=== PATIENT | female | born 1995 | race Caucasian/White ===

== ENCOUNTER 2022-09-14 12:04 | Emergency (ER) | payer OTHER ==
[2022-09-14 12:23] VITALS: BP 106/61; PULSE 72; RESP 18; TEMP 99; BMI 24.1
[2022-09-14] MEDS ORDERED: BENZOCAINE/MENTH/CETYLPYRD CL 1 EACH LOZENGE MM PRN (12:43)
[2022-09-14] MEDS ORDERED: ACETAMINOPHEN 325 MG TABLET (FP) PO ONE (12:43)
[2022-09-14] MEDS ORDERED: ERYTHROMYCIN 0.5% OPHTHALMIC OINTMENT 3.5 GM TUBE OD ONE (12:44)
[2022-09-14] MEDS ORDERED: ERYTHROMYCIN 0.5% OPHTHALMIC OINTMENT 3.5 GM TUBE ONE (12:48)
[2022-09-14] MEDS ORDERED: ACETAMINOPHEN 325 MG TABLET (FP) ONE (12:48)
== END 2022-09-14 13:35 | disposition home or self-care (01) ==
LOC: FER 12:04
DX: H10.9 Unspecified conjunctivitis (principal); R07.0 Pain in throat; B34.9 Viral infection, unspecified
CPT/HCPCS: 0241U-QW; 71045-TC-FY; 87070; 99284-25

== ENCOUNTER 2022-09-19 11:15 | Emergency (ER) | payer OTHER ==
[2022-09-19 11:22] VITALS: BP 113/67; PULSE 70; RESP 18; TEMP 99.1; BMI 23.7
[2022-09-19] MEDS ORDERED: ACETAMINOPHEN 500 MG TABLET (FP) PO ONE (13:02)
[2022-09-19] MEDS ORDERED: ACETAMINOPHEN 500 MG TABLET (FP) ONE (13:03)
== END 2022-09-19 14:15 | disposition home or self-care (01) ==
LOC: FER 11:15
DX: R05.1 Acute cough (principal); R09.81 Nasal congestion; J02.9 Acute pharyngitis, unspecified
CPT/HCPCS: 0241U-QW; 71045-TC-FY; 99285-25